=== PATIENT | female | born 1995 | race Caucasian/White ===

== ENCOUNTER → 2019-03-29 | Outpatient (CLI) | payer SELFPAY ==
--- NOTE | 2019-03-29 15:26 | RADIOLOGY REPORT (SQ) ---
EXAM DESCRIPTION: U/S BF2HMGC TRNABD 1GES W/ODOP COMPLETED DATE/TIME: 03/29/2019 3:11 pm REASON FOR STUDY: Z34.01 ENCNTR FOR SUPRVSN OF NORMAL FIRST PREG, FIRST TRIMESTER Z34.01 ENCNTR FOR SUPRVSN OF NORMAL FIRST PREG, FIRST TRIMES COMPARISON: None. TECHNIQUE: Transabdominal static and realtime grayscale images acquired of the pelvis. Additional se lected spectral and color Doppler images recorded. All images stored on PACs. bHCG: Not applicable. CLINICAL DATES: 8 week 4 day. LIMITATIONS: None. FINDINGS: FETUS: Single Living intrauterine . ULTRASOUND EGA: 8 week 2 day. ULTRASOUND VIRI: 11/06/2019. EFW: Not applicable less than 20 weeks. CRL: 1.79 cm. FHR: 175 beats per minute. SURVEY: No visualized anomalies. AMNIOTIC FLUID: Adequate amount. PLACENTA: Not yet developed due to early gestation. SUBCHORIONIC BLEED: No. SIZE OF BLEED: Not applicable. UTERUS: No masses. No anomalies. CERVICAL LENGTH: 2.6 cm. Closed. RIGHT ADNEXA: Normal ovary with normal vascular flow. No adnexal free fluid. No adnexal masses. LEFT ADNEXA: Normal ovary with normal vascular flow. No adnexal free fluid. No adnexal masses. FREE FLUID: None. OTHER: No other significant finding. IMPRESSION: LIVING INTRAUTERINE . EGA 8 WEEK 2 DAY. Trimester of : First - 0 to 13 weeks. TECHNICAL DOCUMENTATION: JOB ID: [id number] [employer]- All Rights Reserved Reading location - IP/workstation name: [email or web address]
== END ==
LOC: RAD 14:37
PROVIDERS: ATTEND Midwife
DX: Z34.01 Encounter for supervision of normal first pregnancy, first trimester (principal)
CPT/HCPCS: 76801

== ENCOUNTER 2019-05-20 09:58 | Emergency (ER) | payer MEDICAID ==
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
[2019-05-20] MEDS ORDERED: METOCLOPRAMIDE HCL ORAL SOLN 10 MG/10 ML UDCUP PO ONE (11:14)
[2019-05-20] MEDS ORDERED: LIDOCAINE 2% VISCOUS SOLN 20 ML UDCUP PO ONE (11:14)
[2019-05-20] MEDS ORDERED: MAG HYDROX/AL HYDROX/SIMETH SUSP 30 ML UDCUP PO ONE (11:14)
[2019-05-20] MEDS ORDERED: DIPHENHYDRAMINE HCL 50 MG/ML VIAL IM ONE (11:14)
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
[2019-05-20 12:05] VITALS: BP 118/61
== END 2019-05-20 12:03 | disposition home or self-care (01) ==
LOC: ER 09:58
DX: O99.340 Other mental disorders complicating pregnancy, unspecified trimester (principal); F41.9 Anxiety disorder, unspecified; O26.899 Other specified pregnancy related conditions, unspecified trimester; R10.816 Epigastric abdominal tenderness; Z3A.00 Weeks of gestation of pregnancy not specified
CPT/HCPCS: 99283; 96374; J1200; J3490 ×3

== ENCOUNTER 2019-05-26 15:14 | Emergency (ER) | payer MEDICAID ==
--- NOTE | 2019-05-26 15:38 | ER Document Report ---
ED Medical Screen (RME) - General Chief Complaint: Vaginal Bleeding Stated Complaint: BLOOD IN STOOL Time Seen by Provider: 05/26/19 15:30 Primary Care Provider: TOSHIA HERRERA MD [Primary Care Provider] - Follow up as needed Mode of Arrival: Ambulatory Information source: Patient Notes: 23-year-old female presented to ED for complaint of pelvic pain cramping and vaginal bleeding. She states is a brownish-red drainage when she wipes after urinating. She states she is 16 weeks and her last ultrasound was on May 12. She is 1 para 0. Patient is alert oriented respirations regular and unlabored speaking in full sentences. She states she was seen in the emergency room last Wednesday for stress and panic attack and was told that if she had any other concerns she could return to the ED. She states the vaginal bleeding is been for 2 days. I have greeted and performed a rapid initial assessment of this patient. A comprehensive ED assessment and evaluation of the patient, analysis of test results and completion of medical decision making process will be conducted by an additional ED providers. TRAVEL OUTSIDE OF THE [place] IN LAST 30 DAYS: No - Related Data Allergies/Adverse Reactions: No Known Allergies Allergy (Verified 05/20/19 10:01) Past Medical History - Social History Chew tobacco use (# tins/day): No Frequency of alcohol use: None Drug Abuse: None Renal/ Medical History: Denies: Hx Peritoneal Dialysis Past Surgical History: Reports: Hx Adenoidectomy, Hx Orthopedic Surgery, Hx Ton sillectomy - Immunizations Immunizations up to date: Yes Hx Diphtheria, Pertussis, Tetanus Vaccination: Yes Physical Exam - Vital signs Vitals: Temp Pulse Resp BP Pulse Ox 98.6 F 95 16 121/74 99 05/26/19 15:24 05/26/19 15:24 05/26/19 15:24 05/26/19 15:24 05/26/19 15:24 Course - Vital Signs Vital signs: Temp Pulse Resp BP Pulse Ox 98.6 F 95 16 121/74 99 05/26/19 15:24 05/26/19 15:24 05/26/19 15:24 05/26/19 15:24 05/26/19 15:24 Doctor's Discharge - Discharge Referrals: TOSHIA HERRERA MD [Primary Care Provider] - Follow up as needed
[2019-05-26 16:40] LABS: ABSOLUTE LYMPHOCYTES (AUTO) 2.6 10^3/uL (0.5-4.7); ABSOLUTE MONOCYTES (AUTO) 0.5 10^3/uL (0.1-1.4); ABSOLUTE NEUT (AUTO) 8.2 10^3/uL (1.7-8.2); BASOPHILS % (AUTO) 0.1 % (0-2); EOSINOPHILS % (AUTO) 0.1 % (0-6); HEMATOCRIT 36.3 % (36.0-47.0); HEMOGLOBIN 12.2 g/dL (12.0-15.5); LYMPHOCYTES % (AUTO) 22.5 % (13-45); MEAN CORPUSCULAR HEMOGLOBIN 30.2 pg (27.0-33.4); MEAN CORPUSCULAR HGB CONC 33.6 g/dL (32.0-36.0); MEAN CORPUSCULAR VOLUME 90 fl (80-97); MONOCYTES % (AUTO) 4.8 % (3-13); PLATELET COUNT 314 10^3/uL (150-450); RED BLOOD COUNT 4.04 10^6/uL (3.72-5.28); RED CELL DISTRIBUTION WIDTH 13.1 % (11.5-14.0); SEGMENTED NEUTROPHILS % (AUTO) 72.5 % (42-78); TOTAL CELLS COUNTED % (AUTO) 100 %; WHITE BLOOD COUNT 11.4 10^3/uL (4.0-10.5)
[2019-05-26 17:01] LABS: ALBUMIN 3.8 g/dL (3.5-5.0); ALKALINE PHOSPHATASE 52 U/L (38-126); ANION GAP 11 (5-19); ASPARTATE AMINO TRANSFERASE 16 U/L (14-36); BILIRUBIN,DIRECT 0.2 mg/dL (0.0-0.4); BILIRUBIN,TOTAL 0.8 mg/dL (0.2-1.3); BLOOD UREA NITROGEN 5 mg/dL (7-20); CALCIUM 9.5 mg/dL (8.4-10.2); CARBON DIOXIDE 22 mmol/L (22-30); CHLORIDE 104 mmol/L (98-107); GLUCOSE 78 mg/dL (75-110); POTASSIUM 4.1 mmol/L (3.6-5.0); TOTAL PROTEIN 6.4 g/dL (6.3-8.2)
--- NOTE | 2019-05-26 18:04 | RADIOLOGY REPORT (SQ) ---
EXAM DESCRIPTION: U/S OB 14+ TRNABD 1GES W/O DOP COMPLETED DATE/TIME: 05/26/2019 4:46 pm REASON FOR STUDY: pelvic pain cramping vaginal bleed COMPARISON: 03/29/2019 TECHNIQUE: Limited transabdominal grayscale ultrasound for evaluation of specific requested obstetri kim parameters. LIMITATIONS: None. FINDINGS: CERVICAL LENGTH: 2.5 cm Closed internal cervical os however there is an 8 mm focal area of fluid in the posterior aspect of the cervical canal that was not seen on the March exam. LVP: 3.3 cm cm. FHR: 152 beats per minute. PRESENTATION: Variable. PLACENTA: Posterior placenta but there appears to be covering of the internal os by the inferior talha in. ANATOMY: Not assessed OTHER: No other significant findings. IMPRESSION: Closed internal cervical os however there is an 8 mm focal area of fluid in the posterio r aspect of the cervical canal that was not seen on the March exam. Posterior placenta but there appears to be covering of the internal os by the inferior margin. OB co nsultation recommended. Trimester of : Second trimester - 13 weeks 1 day to 27 weeks 6 days. TECHNICAL DOCUMENTATION: JOB ID: [id number] [id number] 2010 [employer]- All Rights Reserved Reading location - IP/workstation name: [email or web address]
[2019-05-26 18:40] LABS: APPEARANCE,URINE CLOUDY; BILIRUBIN,URINE NEGATIVE (NEGATIVE); GLUCOSE, URINE NEGATIVE (NEGATIVE); KETONES,URINE 80 mg/dL (NEGATIVE); LEUKOCYTE ESTERASE,URINE LARGE (NEGATIVE); NITRITE,URINE NEGATIVE (NEGATIVE); PROTEIN,URINE 30 mg/dL (NEGATIVE); UROBILINOGEN,URINE NEGATIVE mg/dL (<2.0)
[2019-05-26 18:41] LABS: COLOR,URINE YELLOW
--- NOTE | 2019-05-26 19:08 | ER Document Report ---
ED General - General Chief Complaint: Vaginal Bleeding Stated Complaint: BLOOD IN STOOL Time Seen by Provider: 05/26/19 15:30 Primary Care Provider: TOSHIA HERRERA MD [Primary Care Provider] - Follow up as needed Mode of Arrival: Ambulatory Notes: Patient is a 23-year-old female G1, P0 approximately 16.5 weeks presents to the emergency department for vaginal bleeding. Patient states approximately 2100 hrs. last night she urinated and wiped and said that it was bright red. States throughout the day when she does wipe after urination it is brownish-red. Patient's denying any abdominal pain but is concerned because she feels as though this is a vaginal bleeding. Patient's [facility] is at [facility]. TRAVEL OUTSIDE OF THE [place] IN LAST 30 DAYS: No - Related Data Allergies/Adverse Reactions: No Known Allergies Allergy (Verified 05/20/19 10:01) Past Medical History - General Information source: Patient - Social History Smoking Status: Never Smoker Chew tobacco use (# tins/day): No Frequency of alcohol use: None Drug Abuse: None Family History: Reviewed & Not Pertinent Patient has suicidal ideation: No Patient has homicidal ideation: No Renal/ Medical History: Denies: Hx Peritoneal Dialysis Past Surgical History: Reports: Hx Adenoidectomy, Hx Orthopedic Surgery, Hx Tonsillectomy - Immunizations Immunizations up to date: Yes Hx Diphtheria, Pertussis, Tetanus Vaccination: Yes Review of Systems - Review of Systems Constitutional: denies: Fever EENT: No symptoms reported Cardiovascular: No symptoms reported Respiratory: No symptoms reported Gastrointestinal: See HPI Genitourinary: See HPI Female Genitourinary: See HPI Musculoskeletal: No symptoms reported Skin: No symptoms reported Hematologic/Lymphatic: No symptoms reported Neurological/Psychological: No symptoms reported Physical Exam - Vital signs Vitals: Temp Pulse Resp BP Pulse Ox 98.6 F 95 16 121/74 99 05/26/19 15:24 05/26/19 15:24 05/26/19 15:24 05/26/19 15:24 05/26/19 15:24 - Notes Notes: GENERAL: Alert, interacts well. No acute distress. HEAD: Normocephalic, atraumatic. EYES: Pupils equal, round, and reactive to light. Extraocular movements intact. ENT: Oral mucosa moist, tongue midline. NECK: Full range of motion. Supple. Trachea midline. LUNGS: Clear to auscultation bilaterally, no wheezes, rales, or rhonchi. No respiratory distress. HEART: Regular rate and rhythm. No murmur ABDOMEN: Soft, non-tender. Non-distended. Bowel sounds present in all 4 quadrants. No McBurney's point tenderness, no Dupont sign noted. No suprapubic tenderness noted. EXTREMITIES: Moves all 4 extremities spontaneously. No edema, normal radial and dorsalis pedis pulses bilaterally. No cyanosis. BACK: no cervical, thoracic, lumbar midline tenderness. No saddle anesthesia, normal distal neurovascular exam. NEUROLOGICAL: Alert and oriented x3. Normal speech. cranial nerves II through XII grossly intact PSYCH: Normal affect, normal mood. SKIN: Warm, dry, normal turgor. No rashes or lesions noted. Course - Re-evaluation Re-evalutation: 05/26/19 19:04 Laboratory 05/26/19 05/26/19 05/26/19 16:05 16:05 16:05 WBC 11.4 H RBC 4.04 Hgb 12.2 Hct 36.3 MCV 90 MCH 30.2 MCHC 33.6 RDW 13.1 Plt Count 314 Lymph % (Auto) 22.5 [place] % (Auto) 4.8 Eos % (Auto) 0.1 Baso % (Auto) 0.1 Absolute Neuts (auto) 8.2 Absolute Lymphs (auto) 2.6 Absolute Monos (auto) 0.5 Absolute Eos (auto) 0.0 Absolute Basos (auto) 0.0 Seg Neutrophils % 72.5 Sodium 136.6 L Potassium 4.1 Chloride 104 Carbon Dioxide 22 Anion Gap 11 BUN 5 L Creatinine 0.43 L Est GFR ( Amer) > 60 Est GFR (MDRD) Non-Af > 60 Glucose 78 Calcium 9.5 Total Bilirubin 0.8 Direct Bilirubin 0.2 Neonat Total Bilirubin Not Reportable Neonat Direct Bilirubin Not Reportable Neonat Indirect Bili Not Reportable AST 16 ALT 17 Alkaline Phosphatase 52 Total Protein 6.4 Albumin 3.8 Urine Color Urine Appearance Urine pH Ur Specific [place] Urine Protein Urine Glucose (UA) Urine Ketones Urine Blood Urine Nitrite Urine Bilirubin Urine Urobilinogen Ur Leukocyte Esterase Urine WBC (Auto) Urine RBC (Auto) Urine Bacteria (Auto) Squamous Epi Cells Auto Urine Mucus (Auto) Urine Ascorbic Acid Blood Type AB POSITIVE Rhogam Indicated RHOGAM NOT INDICATED 05/26/19 18:10 WBC RBC Hgb Hct MCV MCH MCHC RDW Plt Count Lymph % (Auto) [place] % (Auto) Eos % (Auto) Baso % (Auto) Absolute Neuts (auto) Absolute Lymphs (auto) Absolute Monos (auto) Absolute Eos (auto) Absolute Basos (auto) Seg Neutrophils % Sodium Potassium Chloride Carbon Dioxide Anion Gap BUN Creatinine Est GFR ( Amer) Est GFR (MDRD) Non-Af Glucose Calcium Total Bilirubin Direct Bilirubin Neonat Total Bilirubin Neonat Direct Bilirubin Neonat Indirect Bili AST ALT Alkaline Phosphatase Total Protein Albumin Urine Color YELLOW Urine Appearance CLOUDY Urine pH 6.0 Ur Specific [place] 1.020 Urine Protein 30 H Urine Glucose (UA) NEGATIVE Urine Ketones 80 H Urine Blood SMALL H Urine Nitrite NEGATIVE Urine Bilirubin NEGATIVE Urine Urobilinogen NEGATIVE Ur Leukocyte Esterase LARGE H Urine WBC (Auto) 15 Urine RBC (Auto) 3 Urine Bacteria (Auto) 1+ Squamous Epi Cells Auto 20 Urine Mucus (Auto) MOD Urine Ascorbic Acid NEGATIVE Blood Type Rhogam Indicated Obstetrics Ultrasound 05/26/19 15:34 IMPRESSION: Closed internal cervical os however there is an 8 mm focal area of fluid in the posterior aspect of the cervical canal that was not seen on the March exam. Posterior placenta but there appears to be covering of the internal os by the inferior margin. OB consultation recommended. Trimester of : Second trimester - 13 weeks 1 day to 27 weeks 6 days. I discussed this case with CLAMPER Dr. rueda. Dr. rueda is suggested that the patient follow-up at their office on Wednesday. I discussed this with patient, will give Dr. rueda's information as well is [facility] I have had an extensive conversation with patient about pelvic rest and return precautions. At this time will discharge with return precautions and follow-up recommendations. Verbal discharge instructions given a the bedside and opportunity for questions given. Medication warnings reviewed. Patient is in agreement with this plan and has verbalized understanding of return precautions and the need for primary care follow-up in the next 24-72 hours. This medical record was dictated with voice recognizing software. There may be grammatical, syntax errors that are unintended. - Vital Signs Vital signs: Temp Pulse Resp BP Pulse Ox 98.6 F 95 16 121/74 99 05/26/19 15:24 05/26/19 15:24 05/26/19 15:24 05/26/19 15:24 05/26/19 15:24 - Laboratory Result Diagrams: 05/26/19 16:05 05/26/19 16:05 Laboratory results interpreted by me: 05/26/19 05/26/19 05/26/19 16:05 16:05 18:10 WBC 11.4 H Sodium 136.6 L BUN 5 L Creatinine 0.43 L Urine Protein 30 H Urine Ketones 80 H Urine Blood SMALL H Ur Leukocyte Esterase LARGE H Discharge - Discharge Clinical Impression: Vaginal bleeding Qualifiers: Weeks of gestation: 16 weeks Qualified Code(s): Z3A.16 - 16 weeks gestation of Urinary tract infection Qualifiers: Urinary tract infection type: acute cystitis Hematuria presence: with hematuria Qualified Code(s): N30.01 - Acute cystitis with hematuria Condition: Stable Disposition: HOME, SELF-CARE Instructions: Vaginal Bleeding ([facility]), Urinary Tract Infection ([facility]), Cephalexin ([facility]) Additional Instructions: As we discussed you have been seen and treated in the emergency department for your vaginal bleeding while . I have spoken with CLAMPER Dr. rueda. Her information will be provided in this packet. She would like you to follow- up at their office or at your CLAMPER's office on Wednesday. Should you have continued vaginal bleeding, feel lightheaded, dizzy, weak, short of breath imme diately return to the emergency room. Otherwise you should partake in pelvic rest. This means nothing goes inside the vaginal canal to include fingers, tampons, toys, penises. Please return to the emergency room for any further concerns. Prescriptions: Cephalexin Monohydrate [Keflex 500 mg Capsule] 500 mg PO BID 7 Days #14 capsule Referrals: TOSHIA HERRERA MD [Primary Care Provider] - Follow up as needed TABBY KING DO [ACTIVE STAFF] - Follow up as needed
[2019-05-26 19:43] VITALS: BP 99/57
== END 2019-05-26 19:40 | disposition home or self-care (01) ==
LOC: ER 15:14
DX: O23.12 Infections of bladder in pregnancy, second trimester (principal); N30.01 Acute cystitis with hematuria; O46.92 Antepartum hemorrhage, unspecified, second trimester; Z3A.16 16 weeks gestation of pregnancy
CPT/HCPCS: 36415; 76805; 80053; 81001; 85025; 86900; 86901; 87086; 87088; 99284

== ENCOUNTER 2019-10-31 07:45 | Inpatient (IN) | payer MEDICAID ==
[2019-10-31] MEDS ORDERED: DINOPROSTONE 10 MG VAGINAL INSERT.SR PV ONE (20:23)
[2019-10-31] MEDS ORDERED: MAG HYDROX/AL HYDROX/SIMETH SUSP 30 ML UDCUP PO PRN (20:23)
[2019-10-31] MEDS ORDERED: ACETAMINOPHEN 325 MG TABLET PO PRN (20:23)
[2019-10-31] MEDS ORDERED: RINGERS SOLUTION,LACTATED 300 ML IV ONE (20:23)
[2019-10-31] MEDS ORDERED: OXYTOCIN/NORMAL SALINE 20 UNIT/1,000 ML RTUINJ IV PRN (20:23)
[2019-10-31] MEDS ORDERED: ZOLPIDEM TARTRATE 5 MG TABLET PO PRN (20:23)
[2019-10-31 21:15] LABS: APPEARANCE,URINE SLIGHTLY-CLOUDY; BILIRUBIN,URINE NEGATIVE (NEGATIVE); COLOR,URINE YELLOW; GLUCOSE, URINE NEGATIVE (NEGATIVE); KETONES,URINE 20 mg/dL (NEGATIVE); LEUKOCYTE ESTERASE,URINE NEGATIVE (NEGATIVE); NITRITE,URINE NEGATIVE (NEGATIVE); PROTEIN,URINE 30 mg/dL (NEGATIVE); URINE SPECIFIC GRAVITY 1.017; UROBILINOGEN,URINE NEGATIVE mg/dL (<2.0)
[2019-10-31] MEDS ORDERED: DINOPROSTONE 10 MG VAGINAL INSERT.SR ONE (21:24)
[2019-10-31 21:26] LABS: ABSOLUTE LYMPHOCYTES (AUTO) 3.1 10^3/uL (0.5-4.7); ABSOLUTE MONOCYTES (AUTO) 0.7 10^3/uL (0.1-1.4); ABSOLUTE NEUT (AUTO) 5.9 10^3/uL (1.7-8.2); BASOPHILS % (AUTO) 0.1 % (0-2); EOSINOPHILS % (AUTO) 0.2 % (0-6); HEMOGLOBIN 11.6 g/dL (12.0-15.5); LYMPHOCYTES % (AUTO) 32.1 % (13-45); MEAN CORPUSCULAR HEMOGLOBIN 29.7 pg (27.0-33.4); MEAN CORPUSCULAR HGB CONC 34.1 g/dL (32.0-36.0); MEAN CORPUSCULAR VOLUME 87 fl (80-97); MONOCYTES % (AUTO) 7.5 % (3-13); PLATELET COUNT 182 10^3/uL (150-450); RED CELL DISTRIBUTION WIDTH 15.3 % (11.5-14.0); SEGMENTED NEUTROPHILS % (AUTO) 60.1 % (42-78); TOTAL CELLS COUNTED % (AUTO) 100 %; WHITE BLOOD COUNT 9.8 10^3/uL (4.0-10.5)
[2019-10-31 21:30] LABS: URINE AMPHETAMINES SCREEN NEGATIVE; URINE BARBITURATES SCREEN NEGATIVE; URINE BENZODIAZEPINES SCREEN NEGATIVE; URINE COCAINE SCREEN NEGATIVE; URINE MARIJUANA (THC) SCREEN NEGATIVE; URINE METHADONE SCREEN NEGATIVE; URINE PHENCYCLIDINE SCREEN NEGATIVE
--- NOTE | 2019-10-31 21:32 | Admission Physical ---
Datetime Report Generated by CPN: 10/31/2019 21:32 CURRENT ADMISSION Chief Complaint: Scheduled Induction of Labor Indication for Induction: Maternal Diabetes Admit Impression : Term, Intrauterine ; Induction of Labor Admit Plan: Admit to Unit; Initiate Labor Induction Protocol ALLERGIES Medication Allergies: No Medication Allergies: No Known Allergies (10/31/2019) Latex: No Latex Allergies Food Allergies: N/A OBSTETRICAL HISTORY EDC: 11/04/2019 00:00 : 1 Para: 0 Gestational Diabetes: Yes Rh Sensitization: No Incompetent Cervix: No NAVNEET: No Infertility: No ART Treatment: No Uterine Anomaly: No IUGR: No Hx Previous C/S: No Macrosomia: No Hx Loss/Stillborn: No PIH: No Hx : No Placenta Previa/Abruption: No Depression/PP Depression: No PTL/PROM: No Post Hemorrhage: No Obstetrical History Comments: G1 - Current SEE RECORDS Alcohol: No Marijuana : No Cocaine: No Other Illicit Drugs: No Cigarettes: Never Smoker. 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 Heart Disease: No Hosp/Surgery: No Autoimmune Disorder: No Anesthetic Complications: No Kidney Disease: No Abnormal Pap Smear: No Neuro/Epilepsy: No Psychiatric Disorders: No Other Medical Diseases: No Hepatitis/Liver Disease: No Significant Family History: No Varicosities/Phlebitis: No Trauma/Violence : No Thyroid Dysfunction: No Medical History Comments: Asthma as a child, ASCUS, removal of david in 2009 INFECTIOUS HISTORY Gonorrhea: No Genital Herpes: No Chlamydia: No Tuberculosis: No Syphilis: No Hepatitis: No HIV/AIDS Exposure: No Rash or Viral Illness: No HPV: No PHYSICAL EXAM General: Normal HEENT: Normal Neurologic: Normal Thyroid: Normal Heart: Normal Lungs: Normal Breast: Normal Back: Normal Abdomen: Normal Genitourinary Exam: Normal Extremities: Normal DTRs: Normal Pelvic Type: Adequate Vital Signs: Reviewed VAGINAL EXAM Dilatation: 2 Effacement: 50 Station: -3 Contraction Comments: Irregular contractions FETUS A EGA: 39.3 Monitoring: External US FHR- Baseline: 130 Variability: Moderate 6-25bpm Accelerations: 15X15 Decelerations: None FHR Category: Category I Presentation: Vertex Admit Comment: G1 at 39.3 wk EGA for IOL d/t unstable lie and GDM -Admit to LDR -NPO and IVFs -CEFM and toco -Cervix 2 cm, will start cervidil this PM and once cervix favorable/in am will begin Pitocin after a one hour break. -Anticipate PLANS FOR LABOR AND DELIVERY Labor and Delivery: None Pain Management: Natural Feeding Preference: Breast Benefit of Breast Feed Discussed: Yes Circumcision: N/A INFORMED CONSENT Informed Consent Obtained: Vaginal Delivery; Induction of Labor; Risks, Benefits and Alternatives Discussed Signature: with User ID: Torri : with User ID: Torri
[2019-10-31] MEDS: RINGERS SOLUTION,LACTATED 1,000 ML IV PRN (21:36)
[2019-11-01] MEDS: RINGERS SOLUTION,LACTATED 1,000 ML IV PRN (06:22)
[2019-11-01] MEDS ORDERED: ACETAMINOPHEN 325 MG TABLET ONE (06:25)
[2019-11-01] MEDS ORDERED: PENICILLIN G POTASSIUM 5,000,000 UNIT in DEXTROSE 5%-WATER 100 ML IV ONE (08:36)
[2019-11-01] MEDS ORDERED: MISOPROSTOL 0.2 MG TABLET ONE (10:31)
[2019-11-01] MEDS ORDERED: LIDOCAINE 1% INJ-PF (10 MG/ML) 30 ML SDV ONE (10:31)
[2019-11-01] MEDS ORDERED: OXYTOCIN 10 UNIT/ML VIAL ONE (10:31)
[2019-11-01] MEDS ORDERED: OXYTOCIN/NORMAL SALINE 20 UNIT/1,000 ML RTUINJ ONE (10:31)
[2019-11-01] MEDS ORDERED: PENICILLIN G-K 5 MILLION UNIT VIAL ONE ×3 (12:51→22:31)
[2019-11-01] MEDS ORDERED: ONDANSETRON HCL INJ/PF 4 MG/2 ML SDV IV PRN (15:12)
[2019-11-01] MEDS ORDERED: ONDANSETRON HCL INJ/PF 4 MG/2 ML SDV ONE (15:13)
[2019-11-01] MEDS ORDERED: NALBUPHINE HCL INJ 10 MG/1 ML AMPULE INJ ONE ×2 (15:13→19:53)
[2019-11-01] MEDS ORDERED: PROMETHAZINE HCL INJ 25 MG/1 ML VIAL IV ONE ×2 (15:14→19:53)
[2019-11-01] MEDS ORDERED: NALBUPHINE HCL INJ 10 MG/1 ML AMPULE ONE ×3 (15:15→19:49)
[2019-11-01] MEDS ORDERED: PROMETHAZINE HCL INJ 25 MG/1 ML VIAL ONE ×2 (15:15→19:49)
[2019-11-01] MEDS: PENICILLIN G POTASSIUM 2,500,000 UNIT in DEXTROSE 5%-WATER 50 ML IV SCH (17:06)
[2019-11-01] MEDS ORDERED: BUPIVACAINE HCL 0.25 % INJ/PF (2.5 MG/1 ML) 30 ML VIAL ONE (20:00)
[2019-11-01] MEDS ORDERED: EPHEDRINE SULFATE INJ 50 MG/1 ML AMPULE ONE (20:00)
[2019-11-01] MEDS ORDERED: FENTANYL/BUPIVACAINE/NS/PF 300 MCG/150 ML RTUINJ EPI ONE (20:00)
[2019-11-01] MEDS ORDERED: LIDOCAINE 2% INJ-PF (20 MG/ML) 10 ML AMPUL ONE (23:56)
[2019-11-02] MEDS ORDERED: PENICILLIN G-K 5 MILLION UNIT VIAL ONE ×3 (01:48→14:07)
[2019-11-02] MEDS ORDERED: NALBUPHINE HCL INJ 10 MG/1 ML AMPULE ONE (03:47)
[2019-11-02] MEDS ORDERED: PROMETHAZINE HCL INJ 25 MG/1 ML VIAL ONE (03:47)
[2019-11-02] MEDS ORDERED: ACETAMINOPHEN 325 MG TABLET ONE (06:48)
[2019-11-02] MEDS ORDERED: ONDANSETRON HCL INJ/PF 4 MG/2 ML SDV IV ONE ×2 (08:50→20:22)
[2019-11-02] MEDS ORDERED: FENTANYL/BUPIVACAINE/NS/PF 300 MCG/150 ML RTUINJ EPI ONE (08:51)
[2019-11-02] MEDS ORDERED: EPHEDRINE SULFATE INJ 50 MG/1 ML AMPULE ONE ×2 (08:51→15:06)
[2019-11-02] MEDS ORDERED: ONDANSETRON HCL INJ/PF 4 MG/2 ML SDV ONE ×2 (08:52→20:23)
[2019-11-02] MEDS ORDERED: BUPIVACAINE HCL 0.25 % INJ/PF (2.5 MG/1 ML) 30 ML VIAL ONE (08:52)
[2019-11-02] MEDS ORDERED: SUCCINYLCHOLINE CHLORIDE INJ 200 MG/10 ML VIAL ONE (09:08)
[2019-11-02] MEDS: PENICILLIN G POTASSIUM 2,500,000 UNIT in DEXTROSE 5%-WATER 50 ML IV SCH ×6 (10:15→19:36)
[2019-11-02] MEDS ORDERED: DIPHENHYDRAMINE HCL 50 MG/ML VIAL ONE (11:52)
[2019-11-02] MEDS ORDERED: DIPHENHYDRAMINE HCL 50 MG/ML VIAL IV ONE (12:10)
[2019-11-02] MEDS ORDERED: OXYTOCIN/NORMAL SALINE 0 UNIT/0 ML RTUINJ ONE (12:26)
[2019-11-02] MEDS ORDERED: CEFAZOLIN 1 GM/D5W RTU 1 GM/50 ML RTUPB IV ONE (14:42)
[2019-11-02] MEDS ORDERED: CITRIC ACID/SODIUM CITRATE ORAL SOLN 15 ML UDCUP ONE (14:42)
[2019-11-02] MEDS ORDERED: LIDOCAINE 2% INJ-PF (20 MG/ML) 10 ML AMPUL ONE ×2 (14:45→15:18)
[2019-11-02] MEDS ORDERED: METHYLERGONOVINE MALEATE INJ/PF 0.2 MG/1 ML AMPULE ONE ×2 (14:46→15:07)
[2019-11-02] MEDS ORDERED: OXYTOCIN 10 UNIT/ML VIAL ONE (15:06)
[2019-11-02] MEDS ORDERED: FENTANYL CITRATE INJ/PF 100 MCG/2 ML AMPUL ONE (15:06)
[2019-11-02] MEDS ORDERED: MIDAZOLAM 2 MG/2 ML INJ ONE (15:06)
[2019-11-02] MEDS ORDERED: KETOROLAC TROMETHAMINE INJ/PF 30 MG/1 ML SDV ONE ×2 (15:06→22:06)
[2019-11-02] MEDS ORDERED: PHENYLEPHRINE HCL INJ/PF 10 MG/1 ML SDV ONE (15:06)
[2019-11-02] MEDS ORDERED: ACETAMINOPHEN 1,000 MG/100 ML RTUPB IV ONE (15:07)
[2019-11-02] MEDS ORDERED: PROMETHAZINE HCL INJ 25 MG/1 ML VIAL IV PRN ×3 (15:43→15:53)
[2019-11-02] MEDS ORDERED: FENTANYL CITRATE INJ/PF 100 MCG/2 ML AMPUL IV PRN ×3 (15:43)
[2019-11-02] MEDS ORDERED: ONDANSETRON HCL INJ/PF 4 MG/2 ML SDV IV PRN (15:43)
[2019-11-02] MEDS ORDERED: OXYCODONE-ACETAMINOPHEN 5-325 MG TABLET PO PRN ×2 (15:43)
[2019-11-02] MEDS ORDERED: DIPHENHYDRAMINE HCL 50 MG/ML VIAL IV PRN (15:43)
[2019-11-02] MEDS ORDERED: PROPOFOL INJ 200 MG/20 ML VIAL IV ONE (15:50)
[2019-11-02] MEDS ORDERED: DIPH/PERTUSS(ACELL)/TETANUS VAC/PF 0.5 ML SYR (>=10YO) IM PRN (15:53)
[2019-11-02] MEDS ORDERED: OXYTOCIN/NORMAL SALINE 20 UNIT/1,000 ML RTUINJ IV PRN (15:53)
[2019-11-02] MEDS ORDERED: SIMETHICONE 80 MG TAB.CHEW PO PRN (15:53)
[2019-11-02] MEDS ORDERED: MEASLES,MUMPS&RUBELLA VACC/PF 0.5 ML VIAL SUBCUT PRN (15:53)
[2019-11-02] MEDS ORDERED: MORPHINE SULFATE 10 MG/ML INJ IM PRN (15:53)
[2019-11-02] MEDS ORDERED: ACETAMINOPHEN 325 MG TABLET PO PRN (15:53)
[2019-11-02] MEDS ORDERED: ACETAMINOPHEN 1,000 MG/100 ML RTUPB IV PRN (15:53)
--- NOTE | 2019-11-02 15:58 | PDOC DELIVERY SUMMARY ---
Delivery Summary - Maternal Risk Factors: Gestational Diabetes, Prolonged Rupture Membrane Ruptured Membranes: AROM Fluids: Meconium Stained - Delivery Labor: Augmentation Presentation: Vertex Uterine Contraction Monitoring: External Support Person Present: Yes Location: OR : Emergency Placenta: Within Normal Limits Nuchal Cord: No - Medications Type of Anesthesia:: GA
--- NOTE | 2019-11-02 16:01 | Operative Report ---
Operative Report DATE OF SURGERY: 11/02/19 PREOPERATIVE DIAGNOSIS: IUP at term unstable lie GDM failure to progress POSTOPERATIVE DIAGNOSIS: Same OPERATION: Primary low transverse delivery of a viable female Apgars of 8 and 9 7 pounds 2 ounces SURGEON: JEFF JOSE ANESTHESIA: GA TISSUE REMOVED OR ALTERED: Placenta ESTIMATED BLOOD LOSS: 1200 cc PROCEDURE: The patient was taken to the operating room where spinal anesthesia was obtained and found to be adequate. She was then prepped and draped in the normal sterile fashion and placed in the dorsal supine position with a leftward tilt. A Pfannenstiel skin incision was then made and carried through to the underlying layers of the fascia with the scalpel. The fascia was incised in the midline and the incision extended laterally with the Quezada scissors. The superior aspect of the fascial incision was then grasped with Masha clamps elevated and the underlying rectus muscles dissected off bluntly. Attention was then turned to the inferior aspect of the fascial incision which in a similar fashion was grasped, tented up with Jassi clamps, and the rectus muscles dissected off bluntly. The rectus muscles were then in the midline and the peritoneum at the amount identified and entered bluntly. The peritoneal incision was then extended superiorly and inferiorly with good visualization of the bladder. [The bladder blade was inserted and the vesicouterine peritoneum identified grasped with [place]ian pickups and entered sharply with the Metzenbaum scissors. His incision was then extended laterally with the Metzenbaum scissors and a bladder flap created digitally. The bladder blade was then reinserted and the lower uterine segment incised in a transverse fashion with the scalpel. The uterine incision was then extended bluntly. The bladder blade was removed and the 's head was delivered from cephalic presentation atraumatically. The nose and mouth were suctioned and the cord doubly clamped and cut. And the infant was handed off to waiting pediatricians. The placenta was then delivered manully and the uterus exteriorized and cleared of all clots and debris. The uterine incision was then repaired with 1-0 Vicryl in a running locked fashion. A second layer of the same suture was used to obtain hemostasis via imbrication of the initial layer. 1 amp of Methergine was injected into the uterine fundus for excessive bleeding. The uterus was returned to the patient's abdomen. The gutters were cleared of all clots and debris. All operative sites were noted to be hemostatic. The fascia was reapproximated with 0 Vicryl in a running fashion from each lateral edge to the midline. The patient tolerated the procedure well. Sponge lap needle and instrument counts are correct -2. 2 g of Ancef were given prior to skin incision. The patient was taken to the recovery area awake and in stable condition.
[2019-11-02] MEDS ORDERED: MEPERIDINE HCL/PF INJ 25 MG/1 ML DISP.SYRIN ONE (16:09)
[2019-11-02] MEDS: MEPERIDINE HCL/PF INJ 25 MG/1 ML DISP.SYRIN IV PRN ×2 (16:13→16:53)
[2019-11-02] MEDS ORDERED: AMPICILLIN SOD INJ 1 GM VIAL ONE ×2 (16:15→21:46)
[2019-11-02] MEDS ORDERED: MORPHINE SULFATE 10 MG/ML INJ ONE ×3 (16:16→22:06)
[2019-11-02] MEDS: MORPHINE SULFATE 10 MG/ML INJ IV PRN ×4 (16:17→17:35)
[2019-11-02] MEDS ORDERED: OXYTOCIN/NORMAL SALINE 20 UNIT/1,000 ML RTUINJ ONE (16:25)
[2019-11-02 16:37] LABS: HEMOGLOBIN 10.6 g/dL (12.0-15.5); MEAN CORPUSCULAR HEMOGLOBIN 29.4 pg (27.0-33.4); MEAN CORPUSCULAR HGB CONC 33.2 g/dL (32.0-36.0); MEAN CORPUSCULAR VOLUME 89 fl (80-97); PLATELET COUNT 172 10^3/uL (150-450); RED BLOOD COUNT 3.61 10^6/uL (3.72-5.28); RED CELL DISTRIBUTION WIDTH 15.7 % (11.5-14.0); WHITE BLOOD COUNT 18.7 10^3/uL (4.0-10.5)
[2019-11-02] MEDS ORDERED: MISOPROSTOL 0.1 MG TABLET PR ONE (16:38)
[2019-11-02] MEDS ORDERED: MISOPROSTOL 0.2 MG TABLET PR ONE (16:52)
[2019-11-02] MEDS ORDERED: TRANEXAMIC ACID INJ/PF 1,000 MG/10 ML SDV IV ONE (17:00)
[2019-11-02] MEDS ORDERED: TRANEXAMIC ACID INJ/PF 1,000 MG/10 ML SDV ONE (18:51)
--- NOTE | 2019-11-02 19:01 | Delivery Summary ---
Del Sum A-C Datetime Report Generated by CPN: 11/02/2019 19:01 DELIVERY PERSONNEL DELIVERY PERSONNEL: [id number] Delivery Doctor:: Jacinto Christensen MD Anesthesiologist:: Nehemias Uriarte MD PROFESSIONAL BASS FISHERMAN:: Mackenzie Rosales CRNA Labor and Delivery Nurse:: Kizzy Powell RN Group Fitness Assistant Department Head:: Ethel Moran RN Dural Mechanic:: Dr. Huey Son Nursery Nurse:: Nahomy Landis RN Slater Apprentice/CASTING MOLDER: Clary Rainey, ST MATERNAL INFORMATION Delivery Anesthesia: Epidural; General Medications After Delivery: Pitocin Bolus-Please Comment; Pitocin Drip 20 Units/1000ml NSS; Methergine 0.2mg IM; Cytotec 1000mcg Per Rectum/Vagina; Other-Please Comment Meds After Delivery Comment: methergine inj into uterus by Dr Christensen in [place];TXA Delivery QBL: 1493 Maternal Complications: Hemorrhage; Maternal Fever; Prolonged Labor > 20 Hrs LABOR SUMMARY EDC: 11/04/2019 00:00 No. Babies in Womb: 1 Attempted: No Labor Anesthesia: Epidural LABOR INFORMATION Reason for Induction: Maternal Diabetes; Other Reason for Induction- Other: unstable lie Onset of Labor: 11/02/2019 11:01 Cervical Ripening Agents: Cervidil Oxytocin: Induction Group B Beta Strep: Positive Antibiotics # of Doses: 8 Name of Antibiotic Given: PCN, Ancef, Ampicillin Steroids Given: None Reason Steroids Not Administered: Not Applicable MEMBRANES Membranes Rupture Method: Spontaneous Rupture of Membranes: 11/01/2019 12:20 Length of Rupture (hr): 27.13 Amniotic Fluid Color: Light Meconium Amniotic Fluid Amount: Moderate Amniotic Fluid Odor: Normal STAGES OF LABOR Stage 3 hr: 0 Stage 3 min: 1 Total Time in Labor hr: 4 Total Time in Labor min: 28 VAGINAL DELIVERY Episiotomy: None Laceration #1: None Laceration Extension #1: N/A Laceration Repair: Not Applicable Sponge Count Correct: N/A Sharps Count Correct: N/A CSECTION DELIVERY Primary Indication: Failed Induction Secondary Indication: Other Other Secondary Indication: failure to progress CSection Urgency: Non-Scheduled CSection Incidence: Primary Labor: Labor Elective: Nonelective CSection Incision: Lower Uterine Transverse BABY A INFORMATION Delivery Date/Time: 11/02/2019 15:28 Method of Delivery: Born in Route : No : N/A Forceps: N/A Vacuum Extraction: N/A Shoulder Dystocia : No PRESENTATION/POSITION BABY A Presentation: Cephalic Cephalic Presentation: Vertex Breech Presentation: N/A PLACENTA INFORMATION BABY A Placenta Delivery Time : 11/02/2019 15:29 Placenta Method of Delivery: Manual Removal Placenta Status: Delivered SCORES BABY A Heart Rate 1 min: >100 bpm Resp Effort 1 min: Good Cry Reflex Irritability 1 min: Cough or Sneeze or Pulls Away Muscle Tone 1 min: Active Motion Color 1 min: Blue/Pale Resuscitation Effort 1 min: Tactile Stimulation SCORE 1 MIN: 8 Heart Rate 5 min: >100 bpm Resp Effort 5 min: Good Cry Reflex Irritability 5 min: Cough or Sneeze or Pulls Away Muscle Tone 5 min: Active Motion Color 5 min: Body [place], Extremities Blue Resuscitation Effort 5 min: Tactile Stimulation SCORE 5 MIN: 9 INFORMATION BABY A Gestational Age at Delivery: 39.5 Gestational Status: Full Term- 39- 40.6 Weeks Infant Outcome : Liveborn Infant Condition : Stable Infant Sex: Female IDENTIFICATION BABY A Verification Date/Time: 11/02/2019 15:30 ID Band Number: [id number] Mother's Name Verified: Yes Infant RN Verifying Infant: GloriaTyler CanbyLESIA espinoza Additional Verifying Personnel: CTyler Powell RN WEIGHT/LENGTH BABY A Birthweight (gm): 3240 Weight (lb): 7 Weight (oz): 2 Length (in): 20.00 Length (cm): 50.80 CORD INFORMATION BABY A No. Cord Vessels: 3 Nuchal Cord : N/A Cord Blood Taken: Yes-For Storage (Mom's Blood type +) Suction: Mouth; Nose ASSESSMENT BABY A Complications: Meconium Skin to Skin: No Dural Mechanic/ALS Called : Yes Care By: Beck LANDIS RN Transferred To: Nursery BABY B INFORMATION : N/A
[2019-11-02] MEDS: DOCUSATE SODIUM 100 MG CAPSULE PO SCH (19:36)
[2019-11-02] MEDS: AMPICILLIN SOD INJ 1 GM VIAL IM SCH (19:36)
[2019-11-02] MEDS: KETOROLAC TROMETHAMINE INJ/PF 30 MG/1 ML SDV IV SCH (23:30)
[2019-11-02] MEDS ORDERED: OXYCODONE-ACETAMINOPHEN 5-325 MG TABLET ONE (23:34)
[2019-11-02] MEDS: OXYCODONE-ACETAMINOPHEN 5-325 MG TABLET PO PRN (23:35)
[2019-11-03] MEDS ORDERED: AMPICILLIN SOD INJ 1 GM VIAL ONE ×2 (03:26→10:39)
[2019-11-03] MEDS: AMPICILLIN SOD INJ 1 GM VIAL IM SCH ×3 (03:33→17:15)
[2019-11-03] MEDS: MORPHINE SULFATE 10 MG/ML INJ IV PRN ×2 (03:34→13:55)
[2019-11-03] MEDS ORDERED: KETOROLAC TROMETHAMINE INJ/PF 30 MG/1 ML SDV ONE (05:25)
[2019-11-03] MEDS ORDERED: OXYCODONE-ACETAMINOPHEN 5-325 MG TABLET ONE ×2 (05:26→10:38)
[2019-11-03 05:49] LABS: HEMATOCRIT 23.9 % (36.0-47.0); MEAN CORPUSCULAR HEMOGLOBIN 29.7 pg (27.0-33.4); MEAN CORPUSCULAR HGB CONC 33.8 g/dL (32.0-36.0); MEAN CORPUSCULAR VOLUME 88 fl (80-97); PLATELET COUNT 154 10^3/uL (150-450); RED BLOOD COUNT 2.72 10^6/uL (3.72-5.28); RED CELL DISTRIBUTION WIDTH 15.6 % (11.5-14.0); WHITE BLOOD COUNT 13.3 10^3/uL (4.0-10.5)
[2019-11-03 06:25] LABS: HEMOGLOBIN 8.1 g/dL (12.0-15.5)
[2019-11-03] MEDS: KETOROLAC TROMETHAMINE INJ/PF 30 MG/1 ML SDV IV SCH (06:30)
[2019-11-03] MEDS: OXYCODONE-ACETAMINOPHEN 5-325 MG TABLET PO PRN ×3 (06:30→15:15)
[2019-11-03] MEDS ORDERED: PRENATAL VITAMIN W DHA CAPSULE PO ONE (10:39)
[2019-11-03] MEDS ORDERED: DOCUSATE SODIUM 100 MG CAPSULE ONE (10:39)
[2019-11-03] MEDS: DOCUSATE SODIUM 100 MG CAPSULE PO SCH ×2 (10:49→17:59)
[2019-11-03] MEDS: PRENATAL VITAMIN W DHA CAPSULE PO SCH (10:49)
[2019-11-03] MEDS ORDERED: ONDANSETRON HCL INJ/PF 4 MG/2 ML SDV IV ONE (16:00)
[2019-11-03] MEDS: IBUPROFEN 800 MG TABLET PO SCH (18:00)
[2019-11-04] MEDS: IBUPROFEN 800 MG TABLET PO SCH ×4 (06:36→18:07)
[2019-11-04] MEDS: OXYCODONE-ACETAMINOPHEN 5-325 MG TABLET PO PRN ×2 (06:37→13:20)
--- NOTE | 2019-11-04 09:48 | PDOC PROGRESS REPORT ---
Subjective-OB Progress Note for:: 11/04/19 Subjective: Doing well, worried bout going home, hsb states she worries about everything, incsion intact, eating well, voiding, passing gas, ambulating, scant lochia, Physical Exam (OB) Vital Signs: Temp Pulse Resp BP Pulse Ox 98.0 F 106 H 16 119/74 98 11/04/19 08:04 11/04/19 08:04 11/04/19 08:04 11/04/19 08:04 11/04/19 08:04 Intake & Output 11/03/19 11/04/19 11/05/19 06:59 06:59 06:59 Intake Total 700 Balance 700 - PIH/Pre-Eclampsia Clonus: Negative Headache: Present Epigastric Pain: Yes Visual Changes: Yes - Dressing Removed: No Incision: Dressing - Lochia Lochia Amount: Small 10-25 ml Lochia Color: Rubra/Red - Abdomen Description: Soft Hernia Present: No Fundal Description: Firm, Midline Fundal Height: u/u - u/2 Objective-Diagnostic Laboratory: 11/03/19 05:26 Assessment and Plan(PN) - Assessment and Plan (1) Anemia, posthemorrhagic, acute Is this a current diagnosis for this admission?: Yes (3) CPD (cephalo-pelvic disproportion) Qualifiers: Cephalopelvic disproportion type: due to unspecified factor Qualified Code(s): O33.9 - Maternal care for disproportion, unspecified Is this a current diagnosis for this admission?: Yes (4) Diet controlled gestational diabetes mellitus Qualifiers: Trimester: second trimester Qualified Code(s): O24.410 - Gestational diabetes mellitus in , diet controlled Is this a current diagnosis for this admission?: Yes (5) 39 weeks gestation of Is this a current diagnosis for this admission?: Yes - Time Spent with Patient Time with patient: Less than 15 minutes Medications reviewed and adjusted accordingly: Yes - Disposition Anticipated Discharge: Home - remove dressing this am and let patient hower before discharge
--- NOTE | 2019-11-04 09:59 | PDOC DISCHARGE SUMMARY ---
Impression - Admit/DC Date/PCP Admission Date/Primary Care Provider: 10/31/19 20:08 LORA CASTAÑEDA MD Discharge Date: 11/04/19 - Discharge Diagnosis (1) Anemia, posthemorrhagic, acute Is this a current diagnosis for this admission?: Yes (3) CPD (cephalo-pelvic disproportion) Is this a current diagnosis for this admission?: Yes (4) Diet controlled gestational diabetes mellitus Is this a current diagnosis for this admission?: Yes (5) 39 weeks gestation of Is this a current diagnosis for this admission?: Yes - Additional Information Resuscitation Status: Full Code Discharge Diet: As Tolerated, Regular Discharge Activity: Activity As Tolerated, No Driving, No Lifting Over 10 Pounds, No Lifting/Push/Pulling, Pelvic Rest, No tub bath Referrals: LORA CASTAÑEDA MD [Primary Care Provider] - ([facility] 1 week) Prescriptions: Oxycodone HCl/Acetaminophen [Percocet 5-325 mg Tablet] 1 tab PO Q4HP PRN #20 tablet PRN Reason: Ibuprofen [Motrin 800 mg Tablet] 800 mg PO Q6 #30 tablet Home Medications: Prenat 115/Iron Fum/Folic/Dss [ 19 Tablet] 1 tab PO DAILY 10/31/19 Ibuprofen [Motrin 800 mg Tablet] 800 mg PO Q6 #30 tablet 11/04/19 Oxycodone HCl/Acetaminophen [Percocet 5-325 mg Tablet] 1 tab PO Q4HP PRN #20 tablet 11/04/19 HPI Gestational Age: 39.5 Reason(s) for Admission: Induction of Labor, Gestional Diabetes, Group B Strep Positive Admission Note: Unstable lie Procedures: NST, Ultrasound Intrapartum Procedure(s): : Low Cervical, Transverse - girl, wt 7-2, apgars 8,9 Hospital Course Hospital Course: Post op hemorrhage Results Laboratory Results: WBC 13.3 10^3/uL (4.0-10.5) H 11/03/19 05:26 RBC 2.72 10^6/uL (3.72-5.28) L 11/03/19 05:26 Hgb 8.1 g/dL (12.0-15.5) L D 11/03/19 05:26 Hct 23.9 % (36.0-47.0) L 11/03/19 05:26 MCV 88 fl (80-97) 11/03/19 05:26 MCH 29.7 pg (27.0-33.4) 11/03/19 05:26 MCHC 33.8 g/dL (32.0-36.0) 11/03/19 05:26 RDW 15.6 % (11.5-14.0) H 11/03/19 05:26 Plt Count 154 10^3/uL (150-450) 11/03/19 05:26 Lymph % (Auto) 32.1 % (13-45) 10/31/19 21:11 Lyman % (Auto) 7.5 % (3-13) 10/31/19 21:11 Eos % (Auto) 0.2 % (0-6) 10/31/19 21:11 Baso % (Auto) 0.1 % (0-2) 10/31/19 21:11 Absolute Neuts (auto) 5.9 10^3/uL (1.7-8.2) 10/31/19 21:11 Absolute Lymphs (auto) 3.1 10^3/uL (0.5-4.7) 10/31/19 21:11 Absolute Monos (auto) 0.7 10^3/uL (0.1-1.4) 10/31/19 21:11 Absolute Eos (auto) 0.0 10^3/uL (0.0-0.6) 10/31/19 21:11 Absolute Basos (auto) 0.0 10^3/uL (0.0-0.2) 10/31/19 21:11 Seg Neutrophils % 60.1 % (42-78) 10/31/19 21:11 Urine Color YELLOW 10/31/19 20:20 Urine Appearance SLIGHTLY-CLOUDY 10/31/19 20:20 Urine pH 6.0 (5.0-9.0) 10/31/19 20:20 Ur Specific [place] 1.017 10/31/19 20:20 Urine Protein 30 mg/dL (NEGATIVE) H 10/31/19 20:20 Urine Glucose (UA) NEGATIVE mg/dL (NEGATIVE) 10/31/19 20:20 Urine Ketones 20 mg/dL (NEGATIVE) H 10/31/19 20:20 Urine Blood NEGATIVE (NEGATIVE) 10/31/19 20:20 Urine Nitrite NEGATIVE (NEGATIVE) 10/31/19 20:20 Urine Bilirubin NEGATIVE (NEGATIVE) 10/31/19 20:20 Urine Urobilinogen NEGATIVE mg/dL (<2.0) 10/31/19 20:20 Ur Leukocyte Esterase NEGATIVE (NEGATIVE) 10/31/19 20:20 Urine Ascorbic Acid NEGATIVE (NEGATIVE) 10/31/19 20:20 Urine Opiates Screen NEGATIVE 10/31/19 20:20 Urine Methadone Screen NEGATIVE 10/31/19 20:20 Ur Barbiturates Screen NEGATIVE 10/31/19 20:20 Ur Phencyclidine Scrn NEGATIVE 10/31/19 20:20 Ur Amphetamines Screen NEGATIVE 10/31/19 20:20 U Benzodiazepines Scrn NEGATIVE 10/31/19 20:20 Urine Cocaine Screen NEGATIVE 10/31/19 20:20 U Marijuana (THC) Screen NEGATIVE 10/31/19 20:20 RPR NONREACTIVE (NONREACTIVE) 10/31/19 21:11 Blood Type AB POSITIVE 10/31/19 21:11 Antibody Screen NEGATIVE 10/31/19 21:11 Plan Health Concerns: anemia, start Iron BID Plan of Treatment: d/c home, rtc 1 week, pain meds prn, irn, rev S&S to report Goals: no complications Time Spent: Less than 30 Minutes
[2019-11-04] MEDS: DOCUSATE SODIUM 100 MG CAPSULE PO SCH ×2 (11:09→18:06)
[2019-11-04] MEDS: PRENATAL VITAMIN W DHA CAPSULE PO SCH (11:09)
[2019-11-04] MEDS: PHENAZOPYRIDINE HCL 200 MG TABLET PO SCH ×2 (11:10→18:06)
[2019-11-04] MEDS: PENICILLIN G POTASSIUM 2,500,000 UNIT in DEXTROSE 5%-WATER 50 ML IV SCH (11:40)
[2019-11-04 15:40] VITALS: BP 133/83
== END 2019-11-04 18:27 | disposition home or self-care (01) | DRG 787 ==
LOC: LR 20:08 → 2N 11-03 11:49
PROVIDERS: ADMIT Obstetrics & Gynecology; ATTEND Obstetrics & Gynecology Gynecology
PROC: 10D00Z1 Extraction of Products of Conception, Low, Open Approach (ICD-10-PCS; principal; 2019-11-02)
DX: O32.0XX0 Maternal care for unstable lie, not applicable or unspecified (principal); O75.2 Pyrexia during labor, not elsewhere classified; O63.9 Long labor, unspecified; O33.9 Maternal care for disproportion, unspecified; O24.420 Gestational diabetes mellitus in childbirth, diet controlled; O99.824 Streptococcus B carrier state complicating childbirth; O77.0 Labor and delivery complicated by meconium in amniotic fluid; O90.81 Anemia of the puerperium; D64.9 Anemia, unspecified; Z3A.39 39 weeks gestation of pregnancy; Z37.0 Single live birth
CPT/HCPCS: 1961; 36415; 80307; 81005; 85025; 85027; 86592; 86850; 86900; 86901; 94760; 94799; J0131; J0290; J0330; J0690; J1200; J1885; J2175; J2210; J2250; J2270; J2300; J2370; J2405; J2540; J2550; J2590; J2704; J3010; J3490